=== PATIENT | female | born 1980 | race Asian ===

== ENCOUNTER → 2017-09-02 | Emergency (ER) | payer OTHER ==
[~2017-09-02] VITALS: Ht 157.5 cm; Wt 68.0 kg
[~2017-09-02] MED LIST: BETAMETHASONE SOD PHOS/ACETATE SUSP 30 MG/5 ML VIAL IM SCH; CETI-1; OXYC1TAB63 PO; PRENTAB7
== END | disposition home or self-care (01) ==
LOC: HOBED 17:16
DX: Z00.00 Encounter for general adult medical examination without abnormal findings (principal)

== ENCOUNTER → 2017-09-02 | Outpatient (CLI) | payer OTHER ==
[~2017-09-02] VITALS: Ht 157.5 cm; Wt 68.0 kg
== END ==
LOC: HOBG 17:24
PROVIDERS: ATTEND Obstetrics & Gynecology
DX: O60.03 Preterm labor without delivery, third trimester (principal); Z3A.00 Weeks of gestation of pregnancy not specified
CPT/HCPCS: 96372; J0702

== ENCOUNTER → 2017-09-03 | Outpatient (CLI) | payer OTHER ==
[~2017-09-03] MED LIST changes: +ePHEDrine/NS 25 MG/5 ML SYRINGE ONE
== END ==
LOC: HOBG 17:25
PROVIDERS: ATTEND Obstetrics & Gynecology
DX: O60.03 Preterm labor without delivery, third trimester (principal); Z3A.00 Weeks of gestation of pregnancy not specified
CPT/HCPCS: 96372; J0702

== ENCOUNTER → 2017-10-08 | Emergency (ER) | payer OTHER ==
[~2017-10-08] MED LIST changes: -ePHEDrine/NS 25 MG/5 ML SYRINGE ONE
== END | disposition home or self-care (01) ==
LOC: HOBED 16:29
DX: Z34.83 Encounter for supervision of other normal pregnancy, third trimester (principal)
CPT/HCPCS: J0702

== ENCOUNTER 2017-10-12 09:30 | Inpatient (IN) | payer OTHER ==
--- NOTE | 2017-10-10 17:51 | MH ---
cc: JASMIN BARNHART DATE OF ADMISSION: 10/13/2017 INDICATIONS FOR PROCEDURE 36-6/7 week intrauterine with complete previa that wraps around the cervix; breech and cervical length of 2.7. 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 She started out with an unremarkable other than there is a 7 cm x 7 cm fibroid noted in the uterus. It became apparent that her early previa was not resolving and she has been followed closely with weekly biophysical profiles and evaluations of cervical length. 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 She has never had an episode of bleeding or cramping and has done remarkably well. Her only medications have been vitamins and occasional Zyrtec. She did receive three doses of steroids. Her blood type is O negative. She did receive RhoGAM. Her initial blood hemoglobin was 11.3. It was then 10.7. Her Pap smear is normal. She is immune to varicella and rubella. Serology was all negative, Hepatitis C was negative. TSH was 1.3. InformaSeq showed no trisomy and a female infant. Her 1-hour Glucola was 135. She had a group B strep. She has no chronic or systemic illness. SOCIAL HISTORY: She does not smoke, drink or use illicit drugs. FAMILY HISTORY: Noncontributory. She does have a history of HSV but because we were doing a anyway, I did not put her on Valtrex. PHYSICAL EXAMINATION: On exam today her weight is 164. Her blood pressure is 120/76. Her urine dip was negative. She has minimal edema. The is in the 58th percentile currently weighing 6 pounds 4 ounces as an estimation, AI of 14.3, cervical length with 2.72, is breech, biophysical profile is 8/8. She denies contractions, leaking, bleeding, nausea, vomiting, blurred vision, or headache. IMPRESSION: A 37 week by Monday with complete wrap around previa and breech infant. She also has a small anterior fibroid. PLAN: The plan is to proceed with primary section. We have talked about type and crossing. We have talked about the rare possibility of an undiagnosed acretta, or the need for hysterectomy. We talked about transfusion protocols. She knows if she has any bleeding to call me immediately and I will meet her at the Labor and Delivery. She has no more shifts in the emergency room between now and her scheduled section. She has signed consents and we are scheduled to proceed on Monday. Jasmin Barnhart MD PPC/MARTIN /4:53 PM /5:11 PM MTDMary
[~2017-10-12] VITALS: Ht 157.5 cm; Wt 75.0 kg
[2017-10-13] VITALS (16 sets, daily range): BP systolic 112–121; BP diastolic 65–80; PULSE 59–84; RESP 16–22; TEMP 95.6–97.8; O2SAT 98–100
[2017-10-13] MEDS ORDERED: CETI-1 (11:33)
[2017-10-13] MEDS ORDERED: PRENTAB7 (11:34)
[2017-10-13 11:39] LABS: AUTOMATED NEUTROPHIL # 6.5 TH/MM3 (1.8-7.7); BASOPHIL % 0.5 % (0.0-2.0); EOSINOPHIL # 0.1 TH/MM3 (0-0.4); EOSINOPHIL % 0.9 % (0.0-4.0); HEMATOCRIT 35.3 % (35.0-46.0); HEMOGLOBIN 12.8 GM/DL (11.6-15.3); LYMPH % 17.8 % (9.0-44.0); LYMPHOCYTE # 1.5 TH/MM3 (1.0-4.8); MEAN CELL VOLUME 89.4 FL (80.0-100.0); MEAN CORPUSCULAR HEMOGLOBIN 32.5 PG (27.0-34.0); MEAN PLATELET VOLUME 7.5 FL (7.0-11.0); MONO % 5.6 % (0.0-8.0); MONOCYTE # 0.5 TH/MM3 (0-0.9); NEUT % 75.2 % (16.0-70.0); PLATELET COUNT 349 TH/MM3 (150-450); RED BLOOD COUNT 3.95 MIL/MM3 (4.00-5.30); RED CELL DISTRIBUTION WIDTH 14.4 % (11.6-17.2); WHITE BLOOD COUNT 8.7 TH/MM3 (4.0-11.0)
[2017-10-13 11:41] LABS: AMORPHOUS SEDIMENT, URINE RARE; BACTERIA, URINE MOD /hpf; BILIRUBIN, URINE NEG (NEG); BLOOD, URINE NEG (NEG); GLUCOSE,URINE NEG (NEG); KETONE, URINE NEG (NEG); MUCUS URINE FEW /lpf (OCC); NITRITE,URINE NEG (NEG); PH, URINE 6.5 (5.0-8.5); SQUAMOUS EPITHELIAL CELL URINE 4 /hpf (0-5); URINE COLOR LIGHT-YELLOW (YELLW/STRAW); URINE LEUKOCYTE ESTERASE MOD (NEG)
[2017-10-13 11:42] LABS: MEAN CORPUSCULAR HGB CONC 36.4 % (32.0-36.0)
[2017-10-13] MEDS ORDERED: LACTATED RINGER'S 1000 ML INJ 1,000 ML IV ONE (11:45)
[2017-10-13] MEDS ORDERED: ONDANSETRON HCL 4 MG/2 ML VIAL IV ONE (12:00)
[2017-10-13] MEDS ORDERED: DEXAMETHASONE SOD PHOS 4 MG/ML VIAL IV ONE (12:00)
[2017-10-13] MEDS ORDERED: PHENYLEPH/NS 1000 MCG/10 ML SYR IV ONE (12:00)
[2017-10-13] MEDS ORDERED: OXYTOCIN 10 UNIT/ML AMP IV ONE (12:00)
[2017-10-13] MEDS ORDERED: LACTATED RINGER'S 1000 ML INJ 1,000 ML IV SCH ×2 (12:15→18:19)
[2017-10-13] MEDS ORDERED: ACETAMINOPHEN 1000 MG/100 ML 100 ML IV ONE ×2 (12:25→13:30)
[2017-10-13] MEDS ORDERED: MORPHINE SULFATE PF 5 MG/10 ML VIAL ONE (12:25)
[2017-10-13] MEDS ORDERED: EPIDURAL-DO NOT ADMINISTER ANTICOAGULANTS PRN (12:30)
[2017-10-13] MEDS ORDERED: EPIDURAL-NALOXONE HCL 0.4 MG/ML AMP IV PUSH PRN (12:30)
[2017-10-13] MEDS ORDERED: ceFAZolin 2 GM PREMIX 50 ML IV SCH (12:30)
[2017-10-13] MEDS ORDERED: EPIDURAL-DIPHENHYDRAMINE HCL 50 MG CAP PO PRN (12:30)
[2017-10-13] MEDS ORDERED: EPIDURAL-DIPHENHYDRAMINE HCL 50 MG/ML VIAL IV PUSH PRN (12:30)
[2017-10-13] MEDS ORDERED: EPIDURAL-NO SYSTEMIC NARCOTICS PRN (12:30)
[2017-10-13] MEDS ORDERED: BUPIVACAINE LIPOSOME PF 1.3% 20 ML VIAL ONE (12:58)
[2017-10-13] MEDS ORDERED: CITRIC ACID-SODIUM CITRATE LIQ 30 ML UDC PO SCH (13:00)
[2017-10-13] MEDS ORDERED: SODIUM CHLORIDE 0.9% 20 ML VIAL ONE (13:04)
--- NOTE | 2017-10-13 13:25 | PD.OB.DELI ---
Procedure Note Section Procedure Pre Op Diagnosis: (1) Placenta previa (2) Third trimester Post Op Diagnosis: (1) Placenta previa (2) Third trimester Performed by Jasmin Hernandez Procedure: Primary Low Transverse Sec Indication for delivery: Other (placenta previa) Previous condition: None Informed consent obtained: For anesthesia, For procedure Confirmed correct: Patient, Procedure, Site, Time-out taken Anesthesia: Spinal Medication prior to procedure: As documented in eMAR Monitoring during procedure: Blood pressure monitoring, monitor and storage bin tender, monitor, Pulse oximetry Urinary catheter: Inserted using sterile technique, To dependent drainage, ml urine output Sterile preparation: Duraprep, In usual fashion, With 2% chlorexidine ( Hibiclens) Position: Supine with wedge to right side Operative Features Skin Incision: Pfannenstiel Uterine Incision: Low transverse w/knife / blunt ext Membranes Ruptured: Artificially Presentation: Occiput anterior Delivery date: Oct 13, 2017 Delivery time: 13:23 Delivery of infant: Assisted, Umbilical cord : Female One Minute : 9 Five Minute : 9 Weight: 5 8 Status of : Viable, Cord blood, Umbilical cord, Nursery present Placenta delivered: Intact Medications: Antibiotics Estimated blood loss: 1000 Procedure tolerated: Well Maternal Condition: Stable Condition: Stable (dictated) Jasmin Hernandez MD Oct 13, 2017 13:25
[2017-10-13] MEDS ORDERED: ONDANSETRON HCL 4 MG/2 ML VIAL IV PUSH PRN (13:30)
[2017-10-13] MEDS ORDERED: oxyCODONE/ACETAMINOPHEN 5 MG/325 MG TAB PO PRN (13:30)
[2017-10-13] MEDS ORDERED: SODIUM CHLORIDE 0.9% FLUSH 10 ML FLUSH IV FLUSH PRN (13:30)
[2017-10-13] MEDS ORDERED: SIMETHICONE 80 MG CHEWABLE TAB PO PRN (13:30)
[2017-10-13] MEDS ORDERED: OXYTOCIN 30 UNITS-500ML PREMIX 500 ML IV ONE (13:30)
[2017-10-13] MEDS ORDERED: ZOLPIDEM TARTRATE 5 MG TAB PO PRN (13:30)
--- NOTE | 2017-10-13 13:55 | MP ---
cc: JASMIN BARNHART DATE OF SURGERY 10/13/2017 PREOPERATIVE DIAGNOSIS 37-week with a complete previa. POSTOPERATIVE DIAGNOSIS 37-week with a complete previa, vertex position. PROCEDURE Primary low transverse segment section. ANESTHESIA Spinal with Duramorph and then a TAP block . SURGEON David. [facility] [employer]. FINDINGS A living female in vertex position who was breech yesterday was delivered OLE with no nuchal cord. She had 45-second cord clamping and she weighed 5 pounds 8 ounces. The Apgars were 9 and 9. The placenta came out very easily. ESTIMATED BLOOD LOSS 800-1000 cc. COUNTS Sponge, instrument and needle counts were correct. CONDITION Mom and baby went to the recovery room in stable condition. DETAILS OF PROCEDURE The patient was walked to the back. Her permit had been reviewed. She was placed on the operating table sitting and underwent a spinal tap with Duramorph. She was then placed in dorsal supine position with weight off the vena cava, prepped and draped in the usual sterile fashion. A timeout was done with all in attendance. She had a Ruiz catheter placed. She had sequential stockings on. After assuring adequate a Pfannenstiel incision was made with a knife and carried down through the rectus fascia with the Bovie on cutting. The rectus fascia was incised in an elliptical fashion and taken off the rectus muscle. The rectus muscle was then bluntly in the midline and the parietal peritoneum was entered sharply. The bladder flap was created off the lower uterine segment. The baby was palpated to be vertex. An attempt was made to go above the placenta and the incision into the intrauterine cavity was just at the anterior edge. The bag of water was broken above that and the delivered with Kiwi assistance quickly. The cord was milked for 45 seconds and then clamped x2, cut, and the infant was handed to the neonatology team in attending. The placenta was delivered manually intact with a three-vessel cord. The uterus was exteriorized and cleaned carefully and then closed with chromic in a running interlocking fashion with a horizontal imbricating layer. An area on the right with some bleeding was revised with chromic. A fibroid on the left cornua was subserosal and unremarkable. The pelvic cavity was cleaned of any clots. The incision was evaluated when the uterus was replaced in the intrauterine cavity. After irrigation the rectus muscle was approximated with a running gentle Vicryl. The fascia was closed with noninterlocking Vicryl. The subcutaneous layer was closed with 3-0 plain and the skin was closed with 4-0 Vicryl on a Jason needle. Estimated blood loss was 1000 cc. Sponge, instrument and needle counts were correct. She tolerated the procedure well and she went to the recovery room stable. Jasmin Barnhart MD PPC/BT /1:10 PM /1:28 PM
[2017-10-13] MEDS ORDERED: OXYTOCIN 30 UNITS-500ML PREMIX 500 ML ONE (14:35)
[2017-10-13] MEDS ORDERED: OXYC1TAB63 PO (18:02)
--- NOTE | 2017-10-13 18:02 | HHI.DCPOC ---
Discharge Care Plan Report Symptoms to Your Doctor -Temperature above 100.5 degrees -Redness, of incision or excessive or foul smelling drainage -Unusual pain or calf pain -Increased vaginal bleeding -Painful or difficulty urinating -Feelings of extreme sadness or anxiety after 2 weeks Goals to Promote Your Health * To prevent worsening of your condition and complications * To maintain your health at the optimal level Directions to Meet Your Goals Take your medications as prescribed Follow your dietary instruction Follow activity as directed Ensure plenty of rest for recovery Drink fluids for hydration Keep your appointments as scheduled Take your immunizations and boosters as scheduled If your symptoms worsen call your PCP, if no PCP go to Urgent Care Center or Emergency Room Smoking is Dangerous to Your Health. Avoid second hand smoke Call the 24-hour crisis hotline for domestic abuse at Jasmin Hernandez MD Oct 13, 2017 18:02
[2017-10-13] MEDS ORDERED: OXYTOCIN 30 UNITS-500ML PREMIX 500 ML IV PRN (23:30)
[2017-10-13] MEDS: IBUPROFEN 600 MG TAB PO PRN (23:48)
[2017-10-14] MEDS ORDERED: TAMSULOSIN HCL 0.4 MG CAP PO SCH
[2017-10-14] MEDS: oxyCODONE/ACETAMINOPHEN 5 MG/325 MG TAB PO PRN ×3 (02:51→20:39)
[2017-10-14] MEDS: DOCUSATE SODIUM 50 MG/SENNA 8.6 MG TAB PO PRN ×2 (02:52→16:12)
[2017-10-14 06:09] LABS: BASOPHIL % 0.3 % (0.0-2.0); EOSINOPHIL % 0.2 % (0.0-4.0); HEMATOCRIT 29.4 % (35.0-46.0); LYMPH % 11.2 % (9.0-44.0); LYMPHOCYTE # 1.7 TH/MM3 (1.0-4.8); MEAN CELL VOLUME 88.8 FL (80.0-100.0); MEAN CORPUSCULAR HEMOGLOBIN 30.4 PG (27.0-34.0); MEAN CORPUSCULAR HGB CONC 34.2 % (32.0-36.0); MEAN PLATELET VOLUME 7.5 FL (7.0-11.0); MONO % 4.2 % (0.0-8.0); MONOCYTE # 0.6 TH/MM3 (0-0.9); NEUT % 84.1 % (16.0-70.0); PLATELET COUNT 261 TH/MM3 (150-450); RED BLOOD COUNT 3.31 MIL/MM3 (4.00-5.30); RED CELL DISTRIBUTION WIDTH 14.5 % (11.6-17.2); WHITE BLOOD COUNT 15.4 TH/MM3 (4.0-11.0)
[2017-10-14] MEDS: IBUPROFEN 600 MG TAB PO PRN ×2 (09:46→20:38)
[2017-10-14] MEDS: SODIUM CHLORIDE 0.9% FLUSH 10 ML FLUSH IV FLUSH SCH (10:45)
--- NOTE | 2017-10-14 15:59 | HHI.OB ---
Subjective Post Day: 1 Remarks Doing well Problem with urinary retention this am and needed a catheter. Bleeding is minimal Baby is good Needs rhogam. Pain is fairly well controlled. Objective Objective Remarks GENERAL: Well-nourished, well-developed patient. CARDIOVASCULAR: Regular rate and rhythm without murmurs, gallops, or rubs. RESPIRATORY: Breath sounds equal bilaterally. No accessory muscle use. ABDOMEN/GI: Abdomen soft, non-tender. Fundus: Firm, non-tender at umbilicus. GENITOURINARY: Light to moderate bleeding. EXTREMITIES: No cyanosis or edema, non-tender, without signs of DVT. Medications and IVs Current Medications Medications (Trade) Dose Ordered Sig/Norah Route Start Time Stop Time Status Last Admin Cefazolin Sodium/ Dextrose 50 ml @ 100 mls/hr BELLMAKER IV 10/13/17 12:30 10/17/17 12:29 10/13/17 12:05 (Bicitra Liq) 30 ml BELLMAKER PO 10/13/17 13:00 10/17/17 12:59 10/13/17 12:05 Oxytocin 500 ml @ 100 mls/hr UNSCH X1 PRN IV 10/13/17 23:30 10/14/17 23:29 (NS Flush) 2 ml BID IV FLUSH 10/13/17 21:00 10/14/17 10:45 (NS Flush) 2 ml UNSCH PRN IV FLUSH 10/13/17 13:30 (Mylicon Chew) 80 mg QID PRN PO 10/13/17 13:30 (Motrin) 600 mg Q6H PRN PO 10/13/17 13:30 10/14/17 09:46 (Percocet 5-325 Mg) 1 tab Q4H PRN PO 10/13/17 13:30 10/14/17 02:51 (Percocet 5-325 Mg) 2 tab Q4H PRN PO 10/13/17 13:30 (Andra-Colace) 2 tab Q12H PRN PO 10/13/17 13:30 10/14/17 02:52 (Ambien) 5 mg HS PRN PO 10/13/17 13:30 (M-M-R Ii Inj) 0.5 ml ONCE ONCE SQ 10/14/17 16:00 10/14/17 16:01 (Boostrix Inj) 0.5 ml ONCE ONCE IM 10/14/17 16:00 10/14/17 16:01 (Zofran Inj) 4 mg Q6H PRN IV PUSH 10/13/17 13:30 Assessment/Plan Assessment and Plan 1. POD 1 2. Allergies will order zyrtec 3. Rh negative will get the rhogam today 4. Urinary retention will d/c cath tomorrow and consider d/c home tomorrow. Fabian Mosley MD Oct 14, 2017 15:59
[2017-10-14] MEDS ORDERED: MEASLES, MUMPS, RUBELLA VACCINE 0.5 ML VIAL SQ ONE (16:00)
[2017-10-14] MEDS ORDERED: DIPHTH/TETANUS/ACEL PERTUSSIS (BOOSTER) 0.5 ML VIAL/PFS IM ONE (16:00)
[2017-10-14] MEDS: CETIRIZINE HCL 10 MG TAB PO SCH (16:13)
[2017-10-15] MEDS: DOCUSATE SODIUM 50 MG/SENNA 8.6 MG TAB PO PRN ×2 (02:30→15:27)
[2017-10-15] MEDS: oxyCODONE/ACETAMINOPHEN 5 MG/325 MG TAB PO PRN ×4 (02:32→21:34)
[2017-10-15] MEDS: IBUPROFEN 600 MG TAB PO PRN ×4 (02:32→21:34)
[2017-10-15] MEDS ORDERED: CETIRIZINE HCL 10 MG TAB PO SCH (09:00)
[2017-10-15] MEDS: CETIRIZINE HCL 10 MG TAB PO SCH (09:31)
[2017-10-15] MEDS: SODIUM CHLORIDE 0.9% FLUSH 10 ML FLUSH IV FLUSH SCH (09:33)
[2017-10-16] MEDS: DOCUSATE SODIUM 50 MG/SENNA 8.6 MG TAB PO PRN (05:59)
[2017-10-16] MEDS: IBUPROFEN 600 MG TAB PO PRN (05:59)
[2017-10-16] MEDS: oxyCODONE/ACETAMINOPHEN 5 MG/325 MG TAB PO PRN (06:00)
[2017-10-16 08:30] VITALS: BP 137/87; PULSE 74; RESP 18; TEMP 97.8
--- NOTE | 2017-10-16 08:43 | HHI.OB ---
Subjective Post Operative Day: 3 Remarks POD#3, Doing well, plan for d/c home Objective Result Diagram: 10/14/17 0530 Objective Remarks GENERAL: Well-nourished, well-developed patient. CARDIOVASCULAR: Regular rate and rhythm without murmurs, gallops, or rubs. RESPIRATORY: Breath sounds equal bilaterally. No accessory muscle use. ABDOMEN/GI: Abdomen soft, non-tender, bowel sounds present. Incision: Clean, dry and intact. Fundus: Firm, non-tender at umbilicus. GENITOURINARY: Light to moderate bleeding. EXTREMITIES: No cyanosis or edema, non-tender, without signs of DVT. Medications and IVs Current Medications Medications (Trade) Dose Ordered Sig/Norah Route Start Time Stop Time Status Last Admin Cefazolin Sodium/ Dextrose 50 ml @ 100 mls/hr METER SUPERVISOR IV 10/13/17 12:30 10/17/17 12:29 10/13/17 12:05 (Bicitra Liq) 30 ml METER SUPERVISOR PO 10/13/17 13:00 10/17/17 12:59 10/13/17 12:05 (NS Flush) 2 ml BID IV FLUSH 10/13/17 21:00 10/14/17 10:45 (NS Flush) 2 ml UNSCH PRN IV FLUSH 10/13/17 13:30 (Mylicon Chew) 80 mg QID PRN PO 10/13/17 13:30 (Motrin) 600 mg Q6H PRN PO 10/13/17 13:30 10/16/17 05:59 (Percocet 5-325 Mg) 1 tab Q4H PRN PO 10/13/17 13:30 10/16/17 06:00 (Percocet 5-325 Mg) 2 tab Q4H PRN PO 10/13/17 13:30 (Andra-Colace) 2 tab Q12H PRN PO 10/13/17 13:30 10/16/17 05:59 (Ambien) 5 mg HS PRN PO 10/13/17 13:30 (Zofran Inj) 4 mg Q6H PRN IV PUSH 10/13/17 13:30 (ZyrTEC) 10 mg DAILY PO 10/14/17 16:00 10/15/17 09:31 Assessment/Plan Assessment and Plan POD#3 Stable. Plan discharge to home. RTO 1-2 weeks Discharge Planning Routine post op Garland Contreras MD Oct 16, 2017 08:43
[2017-10-16] MEDS: SODIUM CHLORIDE 0.9% FLUSH 10 ML FLUSH IV FLUSH SCH (09:02)
[2017-10-16] MEDS: CETIRIZINE HCL 10 MG TAB PO SCH (09:18)
== END 2017-10-16 10:37 | disposition home or self-care (01) | DRG 766 ==
LOC: H2EB 10-13 10:38 → H1EA 10-13 15:22
PROVIDERS: ADMIT Obstetrics & Gynecology; ATTEND Obstetrics & Gynecology
PROC: 10D00Z1 Extraction of Products of Conception, Low, Open Approach (ICD-10-PCS; principal; 2017-10-13)
DX: O44.03 Complete placenta previa NOS or without hemorrhage, third trimester (principal); O99.89 Other specified diseases and conditions complicating pregnancy, childbirth and the puerperium; R33.9 Retention of urine, unspecified; O34.13 Maternal care for benign tumor of corpus uteri, third trimester; Z37.0 Single live birth; Z3A.37 37 weeks gestation of pregnancy
CPT/HCPCS: 59025; 80307; 81001; 85025; 85461; 86850; 86900; 86901; 87086; 90384; C1765; C9290; J0131; J0690; J1100; J2274; J2370; J2405; J2590; J2790; J7120; Q0163